=== PATIENT | male | born 1985 | race Caucasian/White ===

== ENCOUNTER 2020-05-14 07:09 | Emergency (ER) | payer OTHER ==
[~2020-05-14] VITALS: Ht 177.8 cm; Wt 91.6 kg
[2020-05-14] MEDS ORDERED: KETO10TA2 PO (08:51)
== END 2020-05-14 09:06 | disposition home or self-care (01) ==
LOC: ER 07:09
DX: M77.52 Other enthesopathy of left foot and ankle (principal)